=== PATIENT | female | born 1945 | race Caucasian/White ===

== ENCOUNTER 2016-08-30 15:47 | Emergency (ER) | payer OTHER ==
[2016-08-30 16:20] VITALS: BP 94/70; PULSE 64; RESP 16; TEMP 97.9; O2SAT 91
--- NOTE | 2016-08-30 17:12 | UCPHY ---
H & P Time Seen by Provider: 08/30/16 16:29 Patient Type: New HPI/ROS: This patient has cough with associated feeling of chest congestion for 3 days. She reports a productive cough associated with the symptoms. She feels the frequency of the cough has worsened today and she has mild shortness of breath associated with it. She notes no exacerbating or alleviating factors for her symptoms. ROS: No high fevers or chills. No other constitutional symptoms. HEENT: No nasal congestion or headache. No other complaints. Pulmonary: No pleuritic pain. No respiratory distress. Cardiovascular: No heart palpitations or lightheadedness. No leg swelling or pain. GI: No nausea vomiting. 10 point ROS is otherwise negative. Past Medical/Surgical History: Metastatic breast cancer with mets to bones. Migraine headaches Severe scoliosis Previous iatrogenic pneumothorax on the right side Old rib fractures on the right side from falling against a dresser 6 years ago. She did have her influenza vaccination this year. Smoking Status: Current some day smoker Physical Exam: General Appearance: Pleasant 70-year-old female Alert, no distress. Eyes: Pupils equal and round no pallor or injection. ENT, Mouth: Mucous membranes moist. Respiratory: Patient has rhonchi bilaterally. Diminished breath sounds at the base and minimal expiratory wheeze. No rales are appreciated. Cardiovascular: Regular rate and rhythm. No murmur gallop or rub. No peripheral edema. Gastrointestinal: Abdomen is soft and nontender, no masses, bowel sounds normal. Back: Severe scoliosis Neurological: Alert with no focal deficits Skin: Warm and dry, no rashes. Musculoskeletal: Neck is supple nontender. Extremities are symmetrical, full range of motion. Psychiatric: Mood and affect are normal. DIFFERENTIAL DIAGNOSIS: After history and physical exam differential diagnosis was considered for bronchitis, pneumonia, bronchopneumonia, PE, URI with cough with RAD, pulmonary Mets Constitutional: Initial Vital Signs Temperature (C) 36.6 C 08/30/16 16:14 Heart Rate 64 08/30/16 16:14 Respiratory Rate 16 08/30/16 16:14 Blood Pressure 94/70 L 08/30/16 16:14 O2 Sat (%) 91 L 08/30/16 16:14 O2 Delivery Mode Room Air Allergies/Adverse Reactions: No Known Allergies Allergy (Verified 08/30/16 16:13) Home Medications: Medication Instructions Recorded Albuterol Hfa Anes Only [Proair 2 puffs IH Q4 PRN #1 mdi 08/30/16 Hfa Icu (*)] Azithromycin [Zithromax] 250 mg PO DAILY #6 tab 08/30/16 Maxalt 08/30/16 MDM/Departure - MDM Diagnostics: Chest x-ray: Old 8 -10th rib fractures, severe scoliosis, bronchial findings consistent with bronchitis. Question retrocardiac atelectasis versus infiltrate by my interpretation Dr. Rea-radiologist read this as no focal infiltrate. ED Course/Re-evaluation: After reviewing the patient's chest x-ray considering her comorbidities I recommended IV with further workup. The patient declines this and also declines flu swab. She understands the risk of missing potentially more significant illness and accepts this risk explaining "yes, (she) would like to avoid further workup against medical advice. She requests scripts for oral medications to take at home. Discussion: The patient does not have septic physiology here. Her oxygen saturation is on the low side at 91% which prompted a chest x-ray. I think she is safe for discharge home. I gave her appropriate warnings an explanation good the emergency department if she has any worsening of her symptoms despite the treatment plan. - Depart Clinical Impression: Bronchopneumonia Instructions: Community Acquired Pneumonia (ED), Acute Bronchitis (ED) Additional Instructions: Diagnosis: Bronchopneumonia Plan: Humidifier Albuterol inhaler with spacer for cough, wheeze or shortness of breath Zithromax antibiotic Go to the emergency department if he develops any worsening symptoms despite the treatment plan Prescriptions: Albuterol Hfa Anes Only [Proair Hfa Icu (*)] 2 puffs IH Q4 PRN #1 mdi PRN Reason: Wheezing Azithromycin [Zithromax] 250 mg PO DAILY #6 tab Referrals: Eliezer Swift MD [Primary Care Provider] - As per Instructions - PQRS PQRS Measurement: 134: Depression screening and followup, PRIME KELLEY-PHQ2 (12 years and older) Over the last 2 weeks, how often have you been bothered by any of the following problems? 1. Feeling down, depressed, or hopeless? 2. Little interest or pleasure in doing things? Patient answered no to both 1 and 2 130: Documentation of medications. Reviewed all patient medications, doses, route and frequency. 226: Do you smoke? Yes, counseled to stop. 47: 65 and older: Advanced care planning. Patient designates surrogate decision maker as spouse. 51: 18 years old and older with diagnosis of COPD, spirometry performance. NA 52: 18 years old and older with COPD and symptoms of COPD or FEV1<60% predicted prescribed a B Agonist. NA
--- NOTE | 2016-08-30 17:25 | DX ---
Chest, PA and Lateral History: Cough x 2 days, borderline hypoxia COMPARISON: None Findings: There is no focal infiltrate, consolidation or pleural effusion. There is a severe thoracol umbar scoliosis concave to the left in the midthoracic spine and concave to the right in the mid lumb ar spine. There are right axillary surgical clips. There are multiple old solidly healed rib fracture s on the right. No acute fractures are identified. Heart size and looks normal. There is a calcified nodule in the posterior mid chest seen on the lateral view that is consistent with a calcified granul john in the superior segment of the left lower lobe. The pulmonary vascularity is oligemic raising the possibility of underlying airways disease or emphysema. There is no pneumothorax. Lucency associated with the with the mid right lateral chest is likely related to the patient's arm pit. A left chest w all implanted port is present with tip of the catheter overlying the region expected of the superior vena cava. Impression: No evidence for pneumonia or congestive failure. Results discussed with Dr. Dilip Matthews at 17:21.
== END 2016-08-30 17:32 | disposition home or self-care (01) ==
LOC: CED 15:47
DX: J18.0 Bronchopneumonia, unspecified organism (principal); C79.51 Secondary malignant neoplasm of bone; Z85.3 Personal history of malignant neoplasm of breast
CPT/HCPCS: 71020; G0463; 99203-PO

== ENCOUNTER → 2016-12-06 | Outpatient (CLI) | payer OTHER | LOC: BHFA 14:00 | PROVIDERS: ATTEND Internal Medicine Cardiovascular Disease | DX: Z51.11 Encounter for antineoplastic chemotherapy (principal) ==

== ENCOUNTER → 2018-03-07 | Outpatient (CLI) | payer OTHER | LOC: BHFA 14:00 | PROVIDERS: ATTEND Internal Medicine Cardiovascular Disease | DX: Z51.11 Encounter for antineoplastic chemotherapy (principal) ==

== ENCOUNTER → 2018-08-19 | Outpatient (CLI) | payer OTHER | LOC: BHFA 14:00 | PROVIDERS: ATTEND Internal Medicine Cardiovascular Disease | DX: I34.8 Other nonrheumatic mitral valve disorders (principal) ==

== ENCOUNTER → 2019-01-08 | Outpatient (CLI) | payer OTHER | LOC: EMCIMAGING 14:59 ==